=== PATIENT | female | born 1990 | race African-American/Black ===

== ENCOUNTER 2021-06-19 17:09 | Emergency (ER) | payer MEDICAID ==
[~2021-06-19] VITALS: Ht 175.3 cm; Wt 112.0 kg
[2021-06-19] MEDS ORDERED: CEPH500T MT (20:54)
[2021-06-19] MEDS ORDERED: IBUP-2029 MT (20:54)
[2021-06-19 21:19] VITALS: BP 135/76
== END 2021-06-19 21:30 | disposition home or self-care (01) ==
LOC: ER 17:09
DX: R07.89 Other chest pain (principal); L97.518 Non-pressure chronic ulcer of other part of right foot with other specified severity; Z88.0 Allergy status to penicillin
CPT/HCPCS: 71045; 81025; 93005; 99283

== ENCOUNTER 2021-10-31 21:41 | Emergency (ER) | payer MEDICAID ==
[~2021-10-31] VITALS: Ht 175.3 cm; Wt 117.7 kg
[~2021-10-31 21:41] MED LIST: CEPH500T MT; IBUP-2029 MT
[2021-10-31 22:09] VITALS: BP 116/63
[2021-11-01] MEDS: ACETAMINOPHEN 325MG TABLET PO ONE (00:10)
[2021-11-01 00:22] LABS: BASOPHILS % 0.5 % (0.0-2.0); EOSINOPHILS % 1.4 % (0.0-5.0); HEMATOCRIT. 36.5 % (36.0-48.0); HEMOGLOBIN. 11.6 g/dL (12.0-16.0); LYMPHOCYTES % 40.3 % (20.0-50.0); MEAN CORPUSCULAR HEMOGLOBIN 26.3 pg (28.0-32.0); MEAN CORPUSCULAR VOLUME 82.6 fL (81.0-99.0); MEAN PLATELET VOLUME 10.2 fl (7.4-10.4); MONOCYTES % 12.7 % (2.0-8.0); NEUTROPHILS % 45.1 % (40.0-76.0); PLATELET 184 x1000/uL (130-400); RED BLOOD CELL COUNT 4.42 mill/uL (4.2-5.4); RED CELL DISTRIBUTION WIDTH 16.2 % (11.6-14.6)
[2021-11-01 00:31] LABS: CHLORIDE 103 mEq/L (98-107)
[2021-11-01 00:32] LABS: CLARITY URINE CLEAR (CLEAR); COLOR URINE YELLOW (YELLOW); KETONES URINE NEGATIVE (NEGATIVE); LEUKOCYTE ESTERASE URINE NEGATIVE (NEGATIVE); NITRITE URINE NEGATIVE (NEGATIVE); OCCULT BLOOD URINE NEGATIVE (NEGATIVE); PH URINE 5.5 (4.5-8.0); PROTEIN URINE NEGATIVE (NEGATIVE); UROBILINOGEN URINE 0.2 E.U./dL (0.2-1.0)
[2021-11-01 00:58] LABS: B-HCG QUANTITATIVE 44702 mIU/mL (<3)
== END 2021-11-01 03:44 | disposition left against medical advice (07) ==
LOC: ER 21:41
DX: R07.89 Other chest pain (principal)
CPT/HCPCS: 36415; 76801; 80053; 81003; 81025; 83880; 84484; 84702; 85025; 85379; 93005; 93970; 99285